=== PATIENT | male | born 2000 | race Hispanic/Latino ===

== ENCOUNTER 2022-12-16 16:49 | Inpatient (IN) | payer OTHER ==
[~2022-12-16 16:49] MED LIST: Iopamidol-370 76% 500 ML MDV (1 ML CHARGE) ONE
[2022-12-16 17:13] LABS: #Basophils 0.1 thou/uL (0.0-0.2); #Eosinphils 0.1 thou/uL (0.0-0.7); #Monocytes 0.5 thou/uL (0.11-0.59); #Neutrophils 13.6 thou/uL (1.40-6.50); %Basophils 0.5 % (0.0-1.0); %Eosinophils 0.7 % (0.0-10.0); %Lymphocytes 10.5 % (28.0-48.0); %Monocytes 3.3 % (0.0-4.0); %Neutrophils 84.5 % (31.0-61.0); Mean Corpuscular HGB CONC 35.8 g/dL (32.0-36.0); Mean Corpuscular Hemoglobin 30.9 pg (25.0-35.0); Mean Corpuscular Volume 86.4 fl (78.0-98.0); Mean Platelet Volume 10.9 fL (7.4-10.4); Platelet Count 306 10x3/uL (130-400); RBC Distribution Width 12.4 % (11.5-14.5); White Blood Cell (WBC) Count 16.2 10x3/uL (4.8-10.8)
[2022-12-16] MEDS ORDERED: CEFAZOLIN 2 GM VIAL ONE (17:20)
[2022-12-16] MEDS ORDERED: Ketorolac Tromethamine 30 MG/ML VIAL ONE (17:20)
[2022-12-16] MEDS ORDERED: Morphine 4 MG/ML VIAL ONE ×2 (17:20→22:35)
[2022-12-16 17:30] LABS: Acetaminophen Less than 10 mcg/mL (10.0-30.0); Alcohol Less than 10.0 mg/dL (Less than 10); Magnesium 2.4 mg/dL (1.7-2.2); Salicylate Less than 8.0 mg/dL (15.0-30.0)
[2022-12-16 17:36] LABS: ALT (SGPT) 66 U/L (8-55); AST (SGOT) 45 U/L (5-34); Albumin 4.9 g/dL (3.5-5.0); Alkaline Phosphatase 95 U/L (50-130); Anion Gap 15 mmol/L (10-20); BUN (Urea Nitrogen) 21 mg/dL (8.9-20.6); Bilirubin, Total 0.6 mg/dL (0.2-1.2); Calc. Creatinine Clearance 0 mL/min (70-130); Calcium 9.8 mg/dL (7.8-10.44); Carbon Dioxide 19 mmol/L (22-29); Chloride 110 mmol/L (98-107); Estimated GFR 96; Globulin 3.5 g/dL (2.4-3.5); Glucose 167 mg/dL (70-105); Potassium 4.1 mmol/L (3.5-5.1); Protein, Total 8.4 g/dL (6.0-8.3); Sodium 140 mmol/L (136-145)
[2022-12-16] MEDS ORDERED: PROPOFOL 20 ML ONE (21:03)
[2022-12-16] MEDS ORDERED: TETANUS, DIPHTHERIA TOX,ADULT (TDVAX) 0.5 ML VIAL IM ONE (23:04)
[2022-12-16] MEDS ORDERED: Morphine 2 MG/ML VIAL SLOW IVP PRN (23:04)
[2022-12-16] MEDS ORDERED: hydrALAZINE 20 MG/ML VIAL SLOW IVP PRN (23:04)
[2022-12-16] MEDS ORDERED: Dextrose 5% in Water 1,000 ML IV PRN (23:04)
[2022-12-16] MEDS ORDERED: Ipratropium/Albuterol 3 ML NEB NEB PRN (23:04)
[2022-12-16] MEDS ORDERED: Dextrose 50% Abboject 50 ML SYRINGE SLOW IVP PRN (23:04)
[2022-12-16] MEDS ORDERED: Glucagon 1 MG/ML KIT IM PRN (23:04)
[2022-12-16] MEDS ORDERED: Acetaminophen 325 MG TAB PO SCH (23:15)
[2022-12-17] MEDS: Acetaminophen 500 MG TAB PO SCH ×5 (01:36→23:47)
[2022-12-17] MEDS: Sodium Chloride 0.9% 1,000 ML IV SCH ×2 (01:37→19:57)
[2022-12-17] MEDS: traMADol HCl 50 MG TAB PO SCH ×5 (01:37→23:48)
[2022-12-17 02:09] VITALS: BMI 34.0
[2022-12-17 05:43] LABS: #Monocytes 0.7 thou/uL (0.11-0.59); #Neutrophils 7.5 thou/uL (1.40-6.50); %Basophils 0.3 % (0.0-1.0); %Eosinophils 0.1 % (0.0-10.0); %Lymphocytes 12.6 % (28.0-48.0); %Monocytes 7.1 % (0.0-4.0); %Neutrophils 79.5 % (31.0-61.0); Hemoglobin 14.4 g/dL (14.0-18.0); Mean Corpuscular HGB CONC 35.2 g/dL (32.0-36.0); Mean Corpuscular Hemoglobin 31.1 pg (25.0-35.0); Mean Corpuscular Volume 88.3 fl (78.0-98.0); Mean Platelet Volume 11.1 fL (7.4-10.4); Platelet Count 226 10x3/uL (130-400); RBC Distribution Width 12.9 % (11.5-14.5); Red Blood Cell (RBC) Count 4.63 mill/uL (4.00-5.20); White Blood Cell (WBC) Count 9.5 10x3/uL (4.8-10.8)
[2022-12-17 06:13] LABS: ALT (SGPT) 47 U/L (8-55); AST (SGOT) 31 U/L (5-34); Alkaline Phosphatase 76 U/L (50-130); Anion Gap 12 mmol/L (10-20); BUN (Urea Nitrogen) 19 mg/dL (8.9-20.6); Bilirubin, Total 0.9 mg/dL (0.2-1.2); Calc. Creatinine Clearance 212 mL/min (70-130); Calcium 8.7 mg/dL (7.8-10.44); Carbon Dioxide 21 mmol/L (22-29); Chloride 110 mmol/L (98-107); Estimated GFR 127; Globulin 2.7 g/dL (2.4-3.5); Glucose 114 mg/dL (70-105); Potassium 3.4 mmol/L (3.5-5.1); Protein, Total 6.7 g/dL (6.0-8.3); Sodium 140 mmol/L (136-145)
[2022-12-17] MEDS ORDERED: Potassium Chloride 20 MEQ TAB PO SCH (08:45)
[2022-12-17] MEDS: Famotidine 20 MG TAB PO SCH ×2 (09:52→20:56)
[2022-12-17] MEDS ORDERED: Sodium Chloride 0.9% 1,000 ML IV SCH (15:30)
[2022-12-17] MEDS: Ondansetron PF 4 MG/2 ML Vial IVP PRN (17:03)
[2022-12-17] MEDS: Gabapentin 300 MG CAP PO SCH ×2 (18:32→20:56)
[2022-12-18] MEDS: Ondansetron PF 4 MG/2 ML Vial IVP PRN ×3 (01:04→13:43)
[2022-12-18] MEDS: Acetaminophen 500 MG TAB PO SCH ×3 (06:27→18:05)
[2022-12-18] MEDS: traMADol HCl 50 MG TAB PO SCH ×3 (06:27→18:06)
[2022-12-18] MEDS: Gabapentin 300 MG CAP PO SCH ×3 (06:29→20:50)
[2022-12-18] MEDS: Famotidine 20 MG TAB PO SCH ×2 (08:25→20:50)
[2022-12-18 09:25] LABS: Anion Gap 5 mmol/L (10-20); BUN (Urea Nitrogen) 9 mg/dL (8.9-20.6); Calc. Creatinine Clearance 237 mL/min (70-130); Calcium 8.6 mg/dL (7.8-10.44); Carbon Dioxide 28 mmol/L (22-29); Chloride 108 mmol/L (98-107); Estimated GFR 131; Glucose 101 mg/dL (70-105); Potassium 3.8 mmol/L (3.5-5.1); Sodium 137 mmol/L (136-145)
[2022-12-18] MEDS ORDERED: Scopolamine 1.5 mg/72 hour Patch TD SCH (11:00)
[2022-12-18] MEDS ORDERED: Iopamidol-370 76% 500 ML MDV (1 ML CHARGE) ONE (11:44)
[2022-12-18] MEDS ORDERED: Ondansetron ODT 4 MG TAB PO PRN (12:16)
[2022-12-18] MEDS ORDERED: Ibuprofen 200 MG TAB PO PRN (12:25)
[2022-12-19] MEDS: Acetaminophen 500 MG TAB PO SCH ×4 (00:50→19:04)
[2022-12-19] MEDS: traMADol HCl 50 MG TAB PO SCH ×3 (00:51→13:30)
[2022-12-19] MEDS: Gabapentin 300 MG CAP PO SCH ×2 (05:28→13:27)
[2022-12-19] MEDS ORDERED: Senokot S 8.6-50 MG TAB PO SCH (09:00)
[2022-12-19] MEDS ORDERED: Polyethylene Glycol 3350 17 GM Packet PO SCH (09:00)
[2022-12-19] MEDS ORDERED: Bisacodyl 10 MG SUPP PR SCH (09:00)
[2022-12-19] MEDS: Famotidine 20 MG TAB PO SCH (09:16)
[2022-12-19] MEDS ORDERED: traMADol HCl 50 MG TAB PO PRN (13:35)
[2022-12-19 15:25] VITALS: BP 110/69; TEMP 98.2
== END 2022-12-19 18:08 | disposition home or self-care (01) | DRG 552 ==
LOC: ERS 16:49 → SURG A 23:04
PROVIDERS: ADMIT Surgery; ATTEND Surgery
DX: S12.600A Unspecified displaced fracture of seventh cervical vertebra, initial encounter for closed fracture (principal); S22.019A Unspecified fracture of first thoracic vertebra, initial encounter for closed fracture; S92.322A Displaced fracture of second metatarsal bone, left foot, initial encounter for closed fracture; S92.342A Displaced fracture of fourth metatarsal bone, left foot, initial encounter for closed fracture; S92.412A Displaced fracture of proximal phalanx of left great toe, initial encounter for closed fracture; S92.532A Displaced fracture of distal phalanx of left lesser toe(s), initial encounter for closed fracture; R94.6 Abnormal results of thyroid function studies; V89.2XXA Person injured in unspecified motor-vehicle accident, traffic, initial encounter
CPT/HCPCS: 12001; 28630; 36415; 70450; 70498; 71045; 71260; 72125; 74177; 80048; 80053; 80307; 83735; 84443; 84484; 85025; 93005; 96365; 96374; 96375; 97139; G0390; J1885; J2270; J2405; J2704; J7050; Q9967